=== PATIENT | female | born 1975 | race American Indian/Alaskan Native ===

== ENCOUNTER 2017-09-06 07:57 | Emergency (ER) | payer BC ==
--- NOTE | 2017-09-06 08:35 | C.PDOC ---
History Of Present Illness 42 y/o female presents to the ER complaining of redness and swelling to the left lower leg which has been present for the past 3-4 days. Patient reports that she visited an Urgent Care Center 2 day ago and she was informed that she had an "insect bite." Patient reports that she went to see her PMD, Dr. Michael Kim yesterday and he prescribed her Keflex. Denies having other complaints at this time. (-) fever . Time Seen by Provider: 09/06/17 07:58 Chief Complaint (Nursing): Abnormal Skin Integrity History Per: Patient History/Exam Limitations: no limitations Onset/Duration Of Symptoms: Days Current Symptoms Are (Timing): Still Present Quality Of Symptoms: Painful Severity: Moderate Recent travel outside of the [place]: No Past Medical History Reviewed: Historical Data, Nursing Documentation, Vital Signs Vital Signs: Last Vital Signs Temp 98.3 F 09/06/17 08:10 Pulse 66 09/06/17 08:10 Resp 20 09/06/17 08:10 BP 147/94 H 09/06/17 08:10 Pulse Ox 100 09/06/17 09:07 - Medical History PMH: No Chronic Diseases Surgical History: No Surg Hx Family History: States: No Known Family Hx - Social History Hx Alcohol Use: No Hx Substance Use: No - Immunization History Hx Tetanus Toxoid Vaccination: No Hx Influenza Vaccination: No Hx Pneumococcal Vaccination: No Review Of Systems Except As Marked, All Systems Reviewed And Found Negative. Constitutional: Negative for: Fever, Chills Skin: Positive for: Other (redness and swelling to left lower leg) Physical Exam - Physical Exam Appears: Non-toxic, No Acute Distress Skin: Normal Color, Warm, Dry, Other (erythema to right lower leg) Head: Atraumatic, Normacephalic Eye(s): bilateral: Normal Inspection Oral Mucosa: Moist Neck: Supple Chest: Symmetrical Cardiovascular: Rhythm Regular Respiratory: Normal Breath Sounds, No Rales, No Rhonchi, No Wheezing Extremity: Normal ROM, Tenderness (tenderness to left lower leg), Swelling ( swelling to right lower leg with purulent discharge) Neurological/Psych: Oriented x3, Normal Speech ED Course And Treatment O2 Sat by Pulse Oximetry: 100 (RA) Pulse Ox Interpretation: Normal Progress Note: Case discussed with Dr Josefina Kim. Wound cleaned DSD applied Reassessment Condition: Improved - Incision & Drainage Of Abscess Prep Used: Sterile Water, Betadine Procedure: Drained Pus Medical Decision Making Medical Decision Making: I& D of abscess performed. Patient tolerated well. Patient has been discharged and instructed to follow up with Dr. Josefina Kim for further evaluation. Disposition Discussed With .: Antonia Kim Doctor Will See Patient In The: Office Counseled Patient/Family Regarding: Diagnosis, Need For Followup, Rx Given - Disposition Disposition: HOME/ ROUTINE Disposition Time: 09:00 Condition: STABLE Additional Instructions: Follow up with Dr Josefina Kim for further evaluation Prescriptions: Sulfamethoxazole/Trimethoprim [Bactrim DS 800 mg-160 mg] 1 tab PO BID #10 tab Instructions: Skin Abscess Forms: [employer] (Czech) - POA Present On Arrival: None - Clinical Impression Clinical Impression: Abscess - PA / [employer] / Resident Statement MD/DO has reviewed & agrees with the documentation as recorded. - Scribe Statement The provider has reviewed the documentation as recorded by the Richelle Bah Provider Attestation All medical record entries made by the Richelle were at my direction and personally dictated by me. I have reviewed the chart and agree that the record accurately reflects my personal performance of the history, physical exam, medical decision making, and the department course for this patient. I have also personally directed, reviewed, and agree with the discharge instructions and disposition.
[2017-09-06 08:48] VITALS: BP 147/94; PULSE 66; RESP 20; TEMP 98.3; O2SAT 100
== END 2017-09-06 09:14 | disposition home or self-care (01) ==
LOC: C.ER 07:57
DX: L02.416 Cutaneous abscess of left lower limb (principal)